=== PATIENT | female | born 1985 | race Two or more races ===

== ENCOUNTER 2024-05-30 17:45 | Emergency (ER) | payer MEDICAID, OTHER ==
[~2024-05-30] VITALS: Ht 175.3 cm; Wt 75.4 kg
[2024-05-30 19:27] LABS: Urine Bacteria FEW /hpf (None Seen); Urine Blood Negative /uL (Negative); Urine Clarity Clear (Clear); Urine Color Light-Yellow (Yellow); Urine Mucus FEW (None Seen); Urine Protein, UAD Negative (Negative); Urine Specific Gravity 1.017 (1.001-1.035); Urine Urobilinogen Normal (Negative); Urine WBC 1 /hpf (0 - 5)
[2024-05-30 19:31] LABS: Amphetamine Screen, Urine Neg (NEGATIVE); Barbiturate Scree,Urine Neg (NEGATIVE); Benzodiazephine Screen, Urine Neg (NEGATIVE); Cocaine Screen, Urine Neg (NEGATIVE); Opiate Scree,Urine Neg (NEGATIVE); Phencyclidine Screen, Urine Neg (NEGATIVE)
[2024-05-30 19:32] LABS: Cannabinoid Screen, Urine Neg (NEGATIVE)
[2024-05-30] MEDS ORDERED: IBUPROFEN 800 MG TAB PO ONE (21:45)
[2024-05-30] MEDS ORDERED: HYDROcodone-ACET 10/325MG TAB PO ONE (21:45)
[2024-05-30] MEDS ORDERED: TRAM100T32 PO (21:49)
[2024-05-30] MEDS ORDERED: TRAM50TA2 PO (21:50)
[2024-05-31] VITALS: BP 118/82; PULSE 76; RESP 18; TEMP 98; O2SAT 97
== END 2024-05-31 00:02 | disposition home or self-care (01) ==
LOC: ER 17:45
DX: M51.37 Other intervertebral disc degeneration, lumbosacral region (principal); Z90.49 Acquired absence of other specified parts of digestive tract
CPT/HCPCS: 72131; 80307; 81001